=== PATIENT | female | born 1995 | race Two or more races ===

== ENCOUNTER 2017-11-27 13:08 | Inpatient (IN) | payer MEDICAID ==
[2017-11-27] MEDS ORDERED: IBUPROFEN 600 MG TAB PO (17:00)
[2017-11-27] MEDS ORDERED: MISOPROSTOL 200 MCG TAB PR (17:00)
[2017-11-27] MEDS ORDERED: CARBOPROST 250 MCG INJ IM (17:00)
[2017-11-27] MEDS ORDERED: LIDOCAINE 1% (MPF) 30 ML INJ INJ (17:00)
[2017-11-27] MEDS ORDERED: OXYTOCIN 30 UNITS/LR 500 ML IV ×2 (17:00)
[2017-11-27] MEDS ORDERED: METHYLERGONOVINE 0.2 MG INJ IM (17:00)
[2017-11-27 17:47] LABS: ADD MAN DIFF? NO
[2017-11-27 17:53] LABS: INR 0.92; PROTIME 12.4 Sec (11.9-14.9)
[2017-11-27 17:54] LABS: WHITE BLOOD COUNT 10.2 10^3/ul (4.8-10.8)
[2017-11-27 17:54] LABS: ABNORMAL IP MESSAGE 1; BASOPHIL # 0.1 10^3/ul (0.0-0.1); BASOPHILS % 0.5 % (0.0-2.0); EOSINOPHILS # 0.1 10^3/ul (0.0-0.5); EOSINOPHILS % 0.8 % (0.0-7.0); HEMOGLOBIN 13.3 g/dl (12.0-16.0); LYMPHOCYTES # 2.1 10^3/ul (0.8-2.9); LYMPHOCYTES % 20.1 % (15.0-51.0); MEAN CORPUSCULAR HEMOGLOBIN 29.6 pg (29.0-33.0); MEAN CORPUSCULAR VOLUME 84.4 fl (82.0-101.0); MONOCYTE # 0.7 10^3/ul (0.3-0.9); MONOCYTES % 7.1 % (0.0-11.0); NEUTROPHIL # 7.2 10^3/ul (1.6-7.5); NEUTROPHILS % 70.8 % (39.0-77.0); PARTIAL THROMBOPLASTIN TIME 32.3 Sec (25.0-35.0); PLATELET COUNT 136 10^3/UL (140-415); RED CELL DISTRIBUTION WIDTH 12.5 % (11.5-14.5)
[2017-11-27 17:56] LABS: POSITIVE DIFF @See below
[2017-11-27] MEDS: LACTATED RINGER'S 1,000 ML IV (18:22)
[2017-11-27] MEDS: BUTORPHANOL 2 MG INJ IV (22:40)
[2017-11-28] MEDS: LACTATED RINGER'S 1,000 ML IV ×3 (00:35→07:15)
[2017-11-28] MEDS ORDERED: FENTAnyl 2MCG/ML-ROPIV 0.2% 100 ML (01:05)
[2017-11-28] MEDS ORDERED: DIPHENHYDRAMINE 50 MG INJ IV (02:30)
[2017-11-28] MEDS ORDERED: ONDANSETRON 4 MG INJ IV ×2 (02:30→12:00)
[2017-11-28] MEDS ORDERED: NALOXONE (0.4 MG/ML) INJ IV (02:30)
[2017-11-28] MEDS ORDERED: TRIMETHOBENZAMIDE 100 MG/ML VIAL IM (02:30)
[2017-11-28] MEDS: OXYTOCIN 30 UNITS/LR 500 ML IV ×3 (06:05→14:56)
[2017-11-28] MEDS: FENTAnyl 2MCG/ML-ROPIV 0.2% 100 ML BAG EPI (08:26)
[2017-11-28] MEDS ORDERED: AMPICILLIN 2 GM/NS (PMX) 100 ML (08:45)
[2017-11-28] MEDS: AMPICILLIN 2 GM/NS (PMX) 100 ML IVPB (09:00)
[2017-11-28] MEDS ORDERED: HYDROCODONE/APAP (5/325) TAB PO ×2 (12:00)
[2017-11-28] MEDS ORDERED: ACETAMINOPHEN 325 MG TAB PO (12:00)
[2017-11-28] MEDS ORDERED: WITCH HAZEL/GLYCERIN PAD PR (12:00)
[2017-11-28] MEDS ORDERED: DIBUCAINE 1% 30 GM OINT PR (12:00)
[2017-11-28] MEDS ORDERED: OXYCODONE/ASPIRIN (4.88/325) TAB PO ×2 (12:00)
[2017-11-28] MEDS: BENZOCAINE 20% 56 ML SPRAY TOP (12:18)
[2017-11-28] MEDS: IBUPROFEN 600 MG TAB PO ×3 (12:18→23:33)
[2017-11-28] MEDS: LANOLIN 7 GM TUBE TOP (12:19)
[2017-11-28 14:59] LABS: RAPID PLASMA REAGIN NONREACTIVE (NR)
[2017-11-28] MEDS: SENNA/DOCUSATE NA (8.6MG/50MG) TAB PO (20:33)
[2017-11-29] MEDS: IBUPROFEN 600 MG TAB PO ×4 (05:36→23:55)
[2017-11-29] MEDS: SENNA/DOCUSATE NA (8.6MG/50MG) TAB PO ×2 (08:24→20:35)
[2017-11-29 11:10] LABS: ADD MAN DIFF? NO
[2017-11-29 11:15] LABS: WHITE BLOOD COUNT 18.3 10^3/ul (4.8-10.8)
[2017-11-29 11:15] LABS: BASOPHIL # 0.1 10^3/ul (0.0-0.1); BASOPHILS % 0.3 % (0.0-2.0); EOSINOPHILS # 0.2 10^3/ul (0.0-0.5); HEMATOCRIT 33.2 % (37.0-47.0); HEMOGLOBIN 11.6 g/dl (12.0-16.0); LYMPHOCYTES # 2.3 10^3/ul (0.8-2.9); LYMPHOCYTES % 12.3 % (15.0-51.0); MEAN CORPUSCULAR HEMOGLOBIN 29.8 pg (29.0-33.0); MEAN CORPUSCULAR HGB CONC 34.9 g/dl (32.0-37.0); MEAN CORPUSCULAR VOLUME 85.3 fl (82.0-101.0); MEAN PLATELET VOLUME 12.9 fl (7.4-10.4); MONOCYTE # 0.9 10^3/ul (0.3-0.9); MONOCYTES % 4.7 % (0.0-11.0); NEUTROPHIL # 14.8 10^3/ul (1.6-7.5); NEUTROPHILS % 80.8 % (39.0-77.0); PLATELET COUNT 132 10^3/UL (140-415); RED BLOOD COUNT 3.89 10^6/ul (4.20-5.40); RED CELL DISTRIBUTION WIDTH 12.9 % (11.5-14.5)
[2017-11-30] MEDS: IBUPROFEN 600 MG TAB PO ×2 (05:39→12:29)
[2017-11-30 08:46] LABS: ADD MAN DIFF? NO
[2017-11-30 09:00] LABS: ABNORMAL IP MESSAGE 1; BASOPHIL # 0.1 10^3/ul (0.0-0.1); BASOPHILS % 0.4 % (0.0-2.0); EOSINOPHILS # 0.4 10^3/ul (0.0-0.5); EOSINOPHILS % 2.6 % (0.0-7.0); HEMATOCRIT 30.7 % (37.0-47.0); HEMOGLOBIN 10.7 g/dl (12.0-16.0); LYMPHOCYTES # 2.5 10^3/ul (0.8-2.9); LYMPHOCYTES % 17.5 % (15.0-51.0); MEAN CORPUSCULAR HEMOGLOBIN 29.7 pg (29.0-33.0); MEAN CORPUSCULAR HGB CONC 34.9 g/dl (32.0-37.0); MEAN CORPUSCULAR VOLUME 85.3 fl (82.0-101.0); MEAN PLATELET VOLUME 13.2 fl (7.4-10.4); MONOCYTE # 0.8 10^3/ul (0.3-0.9); MONOCYTES % 5.6 % (0.0-11.0); NEUTROPHIL # 10.4 10^3/ul (1.6-7.5); NEUTROPHILS % 73.1 % (39.0-77.0); PLATELET COUNT 144 10^3/UL (140-415); RED CELL DISTRIBUTION WIDTH 12.8 % (11.5-14.5)
[2017-11-30 09:00] LABS: WHITE BLOOD COUNT 14.2 10^3/ul (4.8-10.8)
[2017-11-30] MEDS: MEASLES,MUMPS,RUBELLA VACCINE INJ SC* (09:00)
[2017-11-30 09:02] LABS: POSITIVE DIFF @See below
[2017-11-30] MEDS: SENNA/DOCUSATE NA (8.6MG/50MG) TAB PO (10:00)
[2017-11-30] MEDS: LANOLIN 7 GM TUBE TOP (13:51)
== END 2017-11-30 14:00 | disposition home or self-care (01) | DRG 768 ==
LOC: OBT 13:08 → PP1 11-28 11:28 → L-D 13:09 → OBT 16:41 → L-D 16:30
PROVIDERS: Obstetrics & Gynecology
PROC: 10E0XZZ Delivery of Products of Conception, External Approach (ICD-10-PCS; principal; 2017-11-28)
PROC: 0UBC7ZZ Excision of Cervix, Via Natural or Artificial Opening (ICD-10-PCS; 2017-11-28)
PROC: 0HQ9XZZ Repair Perineum Skin, External Approach (ICD-10-PCS; 2017-11-28)
DX: O34.43 Maternal care for other abnormalities of cervix, third trimester (principal); N88.4 Hypertrophic elongation of cervix uteri; O70.0 First degree perineal laceration during delivery; N88.8 Other specified noninflammatory disorders of cervix uteri; Z37.0 Single live birth; Z3A.38 38 weeks gestation of pregnancy
CPT/HCPCS: 62319; 76815; 76818; 85025; 85610; 85730; 86592; 86850; 86900; 86901; 88305